=== PATIENT | male | born 1960 | race Caucasian/White ===

== ENCOUNTER 2017-02-18 09:49 | Emergency (ER) | payer BC, MEDICAID ==
[~2017-02-18] VITALS: Ht 170.2 cm; Wt 113.4 kg
[~2017-02-18 09:49] MED LIST: BENA40TA2 PO; DILT300C25 PO
--- NOTE | 2017-02-18 10:08 | NUR ---
PRESENTS SELF TO ED DT LEFT FOOT PAIN, 01/28. LEFT FOOT NOTED SWELLING,. NO INJURY,. PT WITH HX OF GOUT,. VSS
[2017-02-18] MEDS ORDERED: KETOROLAC TROMETHAMINE INJ 60 MG/2 ML VIAL IM ONE ×2 (10:23→10:30)
[2017-02-18 10:32] VITALS: BP 148/98
--- NOTE | 2017-02-18 10:32 | NUR ---
Patient discharged to home in stable condition. Written and verbal after care instructions given. Patient verbalizes understanding of instruction.
== END 2017-02-18 10:34 | disposition home or self-care (01) ==
LOC: ER 09:51
DX: M10.9 Gout, unspecified (principal); I10 Essential (primary) hypertension; E66.9 Obesity, unspecified
CPT/HCPCS: 96372; 99283; A4606; J1885; Z7610

== ENCOUNTER 2017-04-29 10:33 | Emergency (ER) | payer MEDICAID ==
[~2017-04-29] VITALS: Ht 167.6 cm; Wt 103.4 kg
[2017-04-29 10:50] VITALS: BP 152/92
[2017-04-29 11:35] LABS: BASOPHILS # (AUTO) 0.1 /CMM (0.0-0.2); BASOPHILS % (AUTO) 0.6 % (0.0-2.0); EOSINOPHILS # (AUTO) 0.1 /CMM (0.0-0.7); EOSINOPHILS % (AUTO) 0.7 % (0.0-6.0); HEMATOCRIT 49 % (39-51); HEMOGLOBIN 16.5 g/dL (13.5-17.5); LYMPHOCYTES # (AUTO) 2.2 /CMM (0.8-4.8); LYMPHOCYTES % (AUTO) 17.5 % (20.0-44.0); MEAN CORPUSCULAR HEMOGLOBIN 29 PG (26.0-33.0); MEAN CORPUSCULAR HGB CONC 34 g/dl (31.0-36.0); MEAN CORPUSCULAR VOLUME 86 fL (80-96); MONOCYTES # (AUTO) 0.8 /CMM (0.1-1.30); MONOCYTES % (AUTO) 6.6 % (2.0-12.0); NEUTROPHILS # (AUTO) 9.4 /CMM (1.8-8.9); NEUTROPHILS % (AUTO) 74.6 % (43.0-81.0); PLATELET COUNT (AUTO) 202 /CMM (150-450); RDW COEFFICIENT OF VARIATION 13.9 (11.5-15.0); RED BLOOD CELL COUNT(AUTO) 5.71 MIL/uL (4.5-6.0); WHITE BLOOD COUNT (AUTO) 12.6 K/uL (4.3-11.0)
== END 2017-04-29 11:52 | disposition home or self-care (01) ==
LOC: ER 10:36
DX: M10.9 Gout, unspecified (principal); I10 Essential (primary) hypertension
CPT/HCPCS: 36415; 85025-TC; A4606; Z7610